=== PATIENT | female | born 1975 | race Caucasian/White ===

== ENCOUNTER 2016-09-01 18:28 | Emergency (ER) | payer BC ==
[~2016-09-01] VITALS: Ht 167.6 cm; Wt 100.0 kg
[~2016-09-01 18:28] MED LIST: ALDACTONE50 MG PO; CLEOCIN HC150 MG/CAP PO; DESYREL 50MG50 MG PO; EFFE25TA; GLUCOPHAGE500 MG/TAB PO; LORTAB ELIX0.5 MG/ML PO; NORCO 325 MG-7.1 TAB PO; PREVACID 30MG30 M1 PO; ZITHROMAX 250M250 MG PO
[2016-09-01 18:32] VITALS: TEMP 98.6
[2016-09-01] MEDS ORDERED: VICTOZA6 MG/ML SQ (18:53)
[2016-09-01] MEDS ORDERED: ALDACTONE 25MG25 M1 PO (18:53)
[2016-09-01] MEDS ORDERED: XANAX .25M0.25 MG/TA PO (18:54)
[2016-09-01] MEDS ORDERED: BUSPAR5 MG PO (18:54)
[2016-09-01] MEDS ORDERED: WELLBUTRIN SR150 M1 PO (18:55)
[2016-09-01 20:30] VITALS: BP 112/70
[2016-09-01 21:18] VITALS: PULSE 100
== END 2016-09-01 21:18 | disposition home or self-care (01) ==
LOC: COL.ER 18:28
DX: L27.1 Localized skin eruption due to drugs and medicaments taken internally (principal); T37.0X5A Adverse effect of sulfonamides, initial encounter
CPT/HCPCS: J0171; J1200; J2930; J7040

== ENCOUNTER 2016-09-02 17:23 | Emergency (ER) | payer BC ==
[~2016-09-02] VITALS: Ht 167.6 cm; Wt 100.9 kg
[~2016-09-02 17:23] MED LIST changes: +ALDACTONE 25MG25 M1 PO; +BUSPAR5 MG PO; +VICTOZA6 MG/ML SQ; +WELLBUTRIN SR150 M1 PO; +XANAX .25M0.25 MG/TA PO
[2016-09-02 17:30] VITALS: BP 127/83; TEMP 99.4
[2016-09-02 19:38] VITALS: PULSE 90
== END 2016-09-02 19:39 | disposition home or self-care (01) ==
LOC: COL.ER 17:23
DX: L50.0 Allergic urticaria (principal); T37.0X5D Adverse effect of sulfonamides, subsequent encounter; E11.9 Type 2 diabetes mellitus without complications; Z79.84 Long term (current) use of oral hypoglycemic drugs
CPT/HCPCS: J1200; J2930

== ENCOUNTER 2017-01-26 11:07 | Emergency (ER) | payer BC ==
[~2017-01-26] VITALS: Ht 167.6 cm; Wt 102.3 kg
[2017-01-26 11:10] VITALS: TEMP 98.8
[2017-01-26 12:25] LABS: BASO % 0.2 % (0.0-2.0); EOS % 0.2 % (0-4.0); GRAN # 10.2 (1.4-6.5); GRAN % 79.3 % (42.2-75.2); HEMATOCRIT 39.8 % (37.0-47.0); HEMOGLOBIN 13.6 g/dl (12.5-16.0); LYMPH % 15.8 % (20.0-51.0); MEAN CELL VOLUME 85 fl (80.0-100.0); MEAN CORPUSCULAR HEMOGLOBIN 29 pg (27.0-31.0); MEAN CORPUSCULAR HGB CONC 34 g/dl (33.0-37.0); MEAN PLATELET VOLUME 10.3 fl (7.4-10.4); MONO # 0.5 (0.1-0.6); MONO % 4.2 % (1.7-9.3); PLATELET COUNT 309 K/mm3 (130-400); REDCELL DISTRIBUTION WIDTH-CV 12.8 % (11.5-14.5); WHITE BLOOD COUNT 12.9 K/mm3 (4.8-10.8)
[2017-01-26 12:48] LABS: ADJUSTED CALCIUM 9.2 mg/dL (8.4-10.2); ALBUMIN 4.2 gm/dL (3.5-5.0); BILIRUBIN,TOTAL 0.9 mg/dL (0.0-1.0); C-REACTIVE PROTEIN 0.8 mg/dL (0.0-0.9); CALCIUM 9.4 mg/dL (8.4-10.2); CREATININE, serum 0.67 mg/dL (0.52-1.25); POTASSIUM 4.3 mmol/L (3.4-5.0); TOTAL PROTEIN 8.1 gm/dL (6.4-8.2)
[2017-01-26 12:54] LABS: PH 8 (5-8); SQUAMOUS EPITHELIAL 0-2 /hpf; URINE APPEARANCE Clear; URINE BACTERIA None Seen /hpf; URINE BILIRUBIN Negative (NEGATIVE); URINE BLOOD Negative (NEGATIVE); URINE COLOR Yellow; URINE GLUCOSE Negative (NEGATIVE); URINE KETONE Trace (NEGATIVE); URINE UROBILINOGEN Negative (NEGATIVE); URINE WBC 0-2 /hpf
[2017-01-26] MEDS ORDERED: NORCO 325 MG-51 TAB PO (13:50)
[2017-01-26] MEDS ORDERED: ZOFRAN ODT4 MG PO (13:50)
[2017-01-26] MEDS ORDERED: ALDACTONE 100M100 MG PO (14:13)
[2017-01-26 14:14] VITALS: BP 120/81; PULSE 81
[2017-01-26] MEDS ORDERED: VYVANSE50 MG PO (14:14)
== END 2017-01-26 14:20 | disposition home or self-care (01) ==
LOC: COL.ER 11:07
PROVIDERS: Physician Assistant
DX: K80.50 Calculus of bile duct without cholangitis or cholecystitis without obstruction (principal); R10.13 Epigastric pain; R10.11 Right upper quadrant pain; F41.9 Anxiety disorder, unspecified; E28.2 Polycystic ovarian syndrome; K21.9 Gastro-esophageal reflux disease without esophagitis
CPT/HCPCS: J1170; J2550; J7030; Q9967